=== PATIENT | female | born 1930 | race Caucasian/White ===

== ENCOUNTER 2018-07-12 17:51 | Inpatient (IN) ==
[2018-07-12] MEDS ORDERED: [UNRECOGNIZED DRUG - REMARK] SQ SCH (18:15)
[2018-07-12] MEDS: Aspirin Enteric Coated 325 MG Tablet PO SCH (22:00)
[2018-07-12] MEDS: *HR* FentaNYL PATCH 25 MCG PATCH TD SCH (22:16)
[2018-07-13] MEDS: *HR* OxyCODONE/APAP 5/325 TABLET PO PRN ×2 (02:59→10:02)
[2018-07-13 06:30] LABS: Eosinophils % 0.4 %; Hematocrit 26.3 % (35.3-44.9); Hemoglobin 8.7 g/dL (11.5-15.4); Immature Granulocytes % 1.9 % (0-4); Lymphocytes # 0.6 K/mcL (0.6-4.6); Lymphocytes % 11.7 %; Mean Corpuscular HGB Conc 33.1 g/dL (31.6-35.5); Mean Corpuscular Hemoglobin 28.8 pg (28.0-33.3); Mean Corpuscular Volume 87.1 fL (83.0-100.0); Mean Platelet Volume 11.7 fL (9.4-12.4); Monocytes # 0.9 K/mcL (0.0-1.3); Monocytes % 18.8 %; Neutrophils # 3.2 K/mcL (1.6-8.9); Platelet Count 120 K/mcL (140-400); Red Blood Count 3.02 M/mcL (3.82-4.97); Red Cell Distribution Width 15.7 % (11.5-14.5); Segmented Neutrophils % 67.2 %
[2018-07-13 07:01] LABS: Platelet Estimate Decreased (Normal)
[2018-07-13] MEDS: amLODIPine 5 MG TABLET PO SCH (08:05)
[2018-07-13] MEDS: Levothyroxine 25 MCG TABLET PO SCH (08:05)
[2018-07-13] MEDS: Aspirin Enteric Coated 325 MG Tablet PO SCH (10:07)
--- NOTE | 2018-07-13 12:47 | Internal Med History&Physical ---
Date of Encounter: 07/13/18 Time of Encounter: 12:15 Assessment and Plan (1) Status post total hip replacement, right Current visit: No Status: Acute PT and OT evaluations have been ordered. Lovenox will be used for DVT prophylaxis. (2) Acute blood loss anemia Current visit: No Status: Acute Lovenox will be used for DVT prophylaxis. CBC will be monitored. (3) Hypertension Current visit: Yes Status: Chronic Continue amlodipine and monitor blood pressure. Qualifiers: Hypertension type: essential hypertension Qualified Code(s): I10 - Essential (primary) hypertension (4) Microscopic hematuria Current visit: Yes Status: Acute Recheck UA (5) Hypothyroidism Current visit: Yes Status: Chronic Check TSH in a.m. Qualifiers: Hypothyroidism type: unspecified Qualified Code(s): E03.9 - Hypothyroidism, unspecified Internal Medicine - H&P: HPI Chief complaint: Right total hip replacement Admitted From: Hospital to Hospital Transfer Plans for Post Hospital Care: Home History of present illness: Ms. Jacobs is a 88 year old female who underwent elective right total hip replacement at [facility] 07/09/[address] Rucker. Her postop course was unremarkable except for receiving 1 unit packed red blood cells transfusion for anemia prior to discharge. She was discharged to [facility] swing bed for rehabilitation therapy prior to returning to independent living. Orthopedic history is significant for left total knee replacement 2004. She has DJD and scoliosis. She denies gout or other bone joint or muscle disorders. 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-epidural inclusion cyst, right neck skin cancer removal - Social History Smoking Status: Never smoker Smokeless Tobacco Status: No Alcohol use: none Drug use: none Internal Medicine - H&P: Meds Levothyroxine [Synthroid] 25 mcg PO QAM 02/07/18 [History] amLODIPine [Norvasc] 5 mg PO DAILY 02/07/18 [History] Syringe W-Needle,Disposab,1 ml [Allergy Syringe] 1 / SQ AD #1 pack 12/11/18 [Rx] Calcium Carbonate/Vitamin D3 [Calcium 600 + Vit D Tablet] 1 tab PO BID 07/09/18 [History] Cyanocobalamin (B-12) [Vitamin B12] 1,000 mcg IM QMONTH 07/09/18 [History] Rubbing Compound 1 appl TP AD PRN 07/09/18 [History] Aspirin Enteric Coated [Aspirin EC] 325 mg PO BID 10 Days #20 tablet. 07/11/18 [Rx] Fentanyl [Duragesic] 25 mcg TD Q72H 9 Days #3 patch.td72 07/11/18 [Rx] Oxycodone HCl/Acetaminophen [Percocet 5-325 mg Tablet] 1 each PO TID PRN 9 Days #18 tablet 07/11/18 [Rx] Allergy/AdvReac Type Severity Reaction Status Date / Time No Known Allergies Allergy Verified 07/09/18 14:02 All Systems PM: A 10-system review of systems was performed and is negative for pertinent findings except as documented above in the HPI. Review of systems: Gen.: She states her weight has decreased approximately 15 pounds in the past year, unintentionally Cardiovascular: She has history of hypertension but denies IA heart failure angina DVT or pulmonary embolus. She reports an EST approximately 15 years ago was unremarkable. Respiratory: She smoked from approximately age [age]. She denies chronic lung disease and does not use home oxygen GI: She denies disorders of her liver gallbladder or exocrine pancreas : She has had hematuria documented without workup done. She denies other disorders of her kidneys or bladder. Neurologic: She denies large distribution strokes or seizures. Endocrine: She has hypothyroidism. She denies hyperlipidemia or DM 2. Hematology/oncology: She denies internal malignancies. She had postoperative anemia with blood transfusion at [facility]. Psychiatric: She denies anxiety depression or other mental health diagnosis. [place] skeletal: As per history of present illness - Constitutional Vitals: Temp Pulse Resp BP Pulse Ox 98.1 F 79 13 131/74 97 07/13/18 06:24 07/13/18 06:24 07/13/18 06:24 07/13/18 06:24 07/13/18 06:24 Exam: Gen.: She is a well-developed lean female resting comfortably in bed who appears in no acute distress HEENT: Head is atraumatic and normocephalic. Eyes: EOMI. There is no scleral icterus. Mouth: Mucosa is moist. Neck: Supple and nontender. There is no thyromegaly or adenopathy noted. Heart: Regular with a 2/6 systolic murmur heard at the left sternal border without radiation to the base or axilla. S1 and S2 are preserved. Lungs: No wheezes or crackles are heard. Back: She has dorsal kyphosis. There is no presacral edema. Abdomen: Soft and nontender. No masses or guarding are noted. Extremities: There is no cyanosis edema or clubbing noted. Dorsalis pedis and posttibial pulses are trace palpable bilaterally. She has significant DJD changes of her hands. She has an abductor pillow in place. Surgical dressing is in place over the right hip surgical site. Neurologic: Mental status: She is talkative and a good historian. Cranial nerves: Smile is symmetric. Forehead wrinkles bilaterally. Tongue protrudes midline. EOMI. Motor: There is no pronator drift. Cerebellar: Finger to nose is intact bilaterally. Skin: Warm and dry Internal Med - H&P Results - Labs CBC & Chem 7: 07/13/18 05:49 Labs: Short CBC 07/13/18 Range/Units 05:49 WBC 4.8 (4.3-11.1) K/mcL Hgb 8.7 L D (11.5-15.4) g/dL Hct 26.3 L (35.3-44.9) % Plt Count 120 L (140-400) K/mcL Neutrophils # 3.2 (1.6-8.9) K/mcL
[2018-07-13] MEDS: *HR* Enoxaparin 40 MG/0.4 ML SYRINGE SQ SCH (16:47)
[2018-07-14 05:40] LABS: Thyroid Stimulating Hormone 1.095 mcIU/mL (0.340-5.600)
[2018-07-14 07:18] LABS: Basophils % 0.2 %; Hematocrit 28.2 % (35.3-44.9); Hemoglobin 9.1 g/dL (11.5-15.4); Immature Granulocytes % 1.9 % (0-4); Lymphocytes % 10.6 %; Mean Corpuscular HGB Conc 32.3 g/dL (31.6-35.5); Mean Corpuscular Hemoglobin 28.7 pg (28.0-33.3); Mean Platelet Volume 11.4 fL (9.4-12.4); Monocytes # 0.9 K/mcL (0.0-1.3); Monocytes % 21.3 %; Neutrophils # 2.7 K/mcL (1.6-8.9); Platelet Count 144 K/mcL (140-400); Red Blood Count 3.17 M/mcL (3.82-4.97); Red Cell Distribution Width 15.4 % (11.5-14.5)
[2018-07-14 07:20] LABS: Lymphocytes # 0.5 K/mcL (0.6-4.6)
[2018-07-14] MEDS: Levothyroxine 25 MCG TABLET PO SCH (07:23)
[2018-07-14] MEDS: *HR* Enoxaparin 40 MG/0.4 ML SYRINGE SQ SCH (07:23)
[2018-07-14 07:24] LABS: Platelet Estimate Normal (Normal)
[2018-07-14] MEDS: amLODIPine 5 MG TABLET PO SCH (08:34)
[2018-07-14] MEDS: MOM Conc 10 ML UD.LIQ PO SCH (08:34)
[2018-07-14 09:27] LABS: Bilirubin,Urine Negative (Negative); Blood,Urine Trace-lysed (Negative); Clarity,Urine Clear (Clear); Color,Urine Yellow (Yellow); Glucose,Urine (UA) Normal (Normal); Ketones,Urine Negative (Negative); Leukocyte Esterase,Urine Negative (Negative); Nitrite,Urine Negative (Negative); Protein,Urine Trace mg/dL (Neg-Trace); Urobilinogen,Urine Normal (Normal)
[2018-07-14 09:40] LABS: Amorphous Sediment,Urine Moderate (Few); Bacteria,Urine Many per hpf (None-Few); Squamous Epithelial Cell,Urine Many per lpf (None-Few)
[2018-07-14 10:02] LABS: Folate 13.8 ng/mL (3.0-16.0)
[2018-07-14] MEDS: *HR* OxyCODONE/APAP 5/325 TABLET PO PRN ×2 (14:03→22:36)
[2018-07-14] MEDS: [UNRECOGNIZED DRUG - OTHER] TP PRN (14:07)
--- NOTE | 2018-07-14 19:39 | Internal Med Progress Note ---
Date of Encounter: 07/14/18 Time of Encounter: 19:30 - Assessment and plan (1) Status post total hip replacement, right Current Visit: No Status: Acute Assessment and plan: July 14. Continue PT and OT intervention with Lovenox. Schedule Tylenol every 6 hours for pain (2) Acute blood loss anemia Current Visit: No Status: Acute Assessment and plan: July 14. Hemoglobin has risen slightly to 9.1. Anemia testing shows iron 18, transferrin saturation 8%, transferrin 167, ferritin 108, B12 363, and folate 13.8. Start ferrous sulfate with ascorbic acid in a.m. Continue to monitor. (3) Hypertension Current Visit: Yes Status: Chronic Assessment and plan: July 14. Continue amlodipine and monitor blood pressure. Qualifiers: Hypertension type: essential hypertension Qualified Code(s): I10 - Essential (primary) hypertension (4) Microscopic hematuria Current Visit: Yes Status: Acute Assessment and plan: July 14. Unchanged. Continue to monitor. (5) Hypothyroidism Current Visit: Yes Status: Chronic Assessment and plan: July 14. TSH normal at 1.095. Continue present dose Synthroid Qualifiers: Hypothyroidism type: unspecified Qualified Code(s): E03.9 - Hypothyroidism, unspecified - Subjective Interval history: July 14. She has "twinges" of pain but no other new complaints. - Constitutional Vitals: Temp Pulse Resp BP Pulse Ox 97.8 F 85 17 110/63 97 07/14/18 18:51 07/14/18 18:51 07/14/18 07:36 07/14/18 18:51 07/14/18 18:51 Exam: She is resting comfortably in bed and appears in no acute distress. Her affect is bright and cheerful. I reviewed her medications and lab results. Internal Medicine: Result - Labs CBC & Chem 7: 07/14/18 04:20 Labs: Short CBC 07/14/18 Range/Units 04:20 WBC 4.2 L (4.3-11.1) K/mcL Hgb 9.1 L (11.5-15.4) g/dL Hct 28.2 L (35.3-44.9) % Plt Count 144 (140-400) K/mcL Neutrophils # 2.7 (1.6-8.9) K/mcL Urine 07/14/18 Range/Units 09:17 Urine Color Yellow (Yellow) Urine Clarity Clear (Clear) Urine pH 8.0 (5.0-8.0) pH Units Ur Specific [place] 1.020 (1.010-1.025) Urine Protein Trace (Neg-Trace) mg/dL Urine Glucose (UA) Normal (Normal) mg/dL Consult Discharge Plan - Plan Referrals: Cait Amato, RUDY [Primary Care Provider] - 1 week
[2018-07-14] MEDS: Acetaminophen 325 MG TABLET PO SCH (20:33)
[2018-07-15] MEDS: Acetaminophen 325 MG TABLET PO SCH ×5 (00:15→23:58)
[2018-07-15] MEDS: [UNRECOGNIZED DRUG - OTHER] TP PRN ×2 (00:16→22:28)
[2018-07-15] MEDS: *HR* Enoxaparin 40 MG/0.4 ML SYRINGE SQ SCH (06:53)
[2018-07-15] MEDS: Levothyroxine 25 MCG TABLET PO SCH (06:53)
[2018-07-15] MEDS: Ascorbic Acid 500 MG TABLET PO SCH (06:53)
[2018-07-15] MEDS: amLODIPine 5 MG TABLET PO SCH (08:41)
[2018-07-15] MEDS: *HR* OxyCODONE/APAP 5/325 TABLET PO PRN (17:28)
[2018-07-15] MEDS: *HR* FentaNYL PATCH 25 MCG PATCH TD SCH (22:27)
[2018-07-16] MEDS: *HR* OxyCODONE/APAP 5/325 TABLET PO PRN ×2 (01:00→16:37)
[2018-07-16] MEDS: *HR* Enoxaparin 40 MG/0.4 ML SYRINGE SQ SCH (06:17)
[2018-07-16] MEDS: Levothyroxine 25 MCG TABLET PO SCH (06:17)
[2018-07-16] MEDS: Acetaminophen 325 MG TABLET PO SCH ×3 (06:17→17:17)
[2018-07-16] MEDS: Ascorbic Acid 500 MG TABLET PO SCH (06:17)
[2018-07-16] MEDS: MOM Conc 10 ML UD.LIQ PO SCH (07:33)
[2018-07-16] MEDS: amLODIPine 5 MG TABLET PO SCH (08:38)
[2018-07-16] MEDS: [UNRECOGNIZED DRUG - OTHER] TP PRN (08:39)
[2018-07-17] MEDS: Acetaminophen 325 MG TABLET PO SCH ×5 (01:00→23:31)
[2018-07-17] MEDS: Ascorbic Acid 500 MG TABLET PO SCH (05:21)
[2018-07-17] MEDS: Levothyroxine 25 MCG TABLET PO SCH (05:21)
[2018-07-17] MEDS: *HR* OxyCODONE/APAP 5/325 TABLET PO PRN ×3 (05:21→23:31)
[2018-07-17] MEDS: *HR* Enoxaparin 40 MG/0.4 ML SYRINGE SQ SCH (05:21)
[2018-07-17] MEDS: amLODIPine 5 MG TABLET PO SCH (09:18)
[2018-07-17] MEDS: [UNRECOGNIZED DRUG - OTHER] TP PRN (16:03)
--- NOTE | 2018-07-17 17:55 | Internal Med Progress Note ---
Date of Encounter: 07/17/18 Time of Encounter: 17:45 - Assessment and plan (1) Status post total hip replacement, right Current Visit: No Status: Acute Assessment and plan: July 14. Continue PT and OT intervention with Lovenox. Schedule Tylenol every 6 hours for pain (2) Acute blood loss anemia Current Visit: No Status: Acute Assessment and plan: July 14. Hemoglobin has risen slightly to 9.1. Anemia testing shows iron 18, transferrin saturation 8%, transferrin 167, ferritin 108, B12 363, and folate 13.8. Start ferrous sulfate with ascorbic acid in a.m. Continue to monitor. July 17. Recheck labs in a.m. (3) Hypertension Current Visit: Yes Status: Chronic Assessment and plan: July 14. Continue amlodipine and monitor blood pressure. Qualifiers: Hypertension type: essential hypertension Qualified Code(s): I10 - Essential (primary) hypertension (4) Microscopic hematuria Current Visit: Yes Status: Acute Assessment and plan: July 14. Unchanged. Continue to monitor. (5) Hypothyroidism Current Visit: Yes Status: Chronic Assessment and plan: July 14. TSH normal at 1.095. Continue present dose Synthroid Qualifiers: Hypothyroidism type: unspecified Qualified Code(s): E03.9 - Hypothyroidism, unspecified - Subjective Interval history: July 14. She has "twinges" of pain but no other new complaints. July 17. She has no complaints. - Constitutional Vitals: Temp Pulse Resp BP Pulse Ox 98.2 F 101 16 115/61 93 07/17/18 07:03 07/17/18 09:16 07/17/18 07:03 07/17/18 09:16 07/17/18 09:16 Exam: She is resting comfortably in bed and appears in no acute distress. Her affect is very bright and cheerful. She is very talkative. I reviewed her medications and lab results. Internal Medicine: Result - Labs CBC & Chem 7: 07/14/18 04:20 Consult Discharge Plan - Plan Referrals: Cait Amato, BERRY PICKER [Primary Care Provider] - 1 week
[2018-07-17] MEDS ORDERED: *HR* FentaNYL PATCH 12 MCG PATCH TD SCH (18:00)
[2018-07-18 05:25] LABS: Hematocrit 28.8 % (35.3-44.9); Mean Corpuscular HGB Conc 31.3 g/dL (31.6-35.5); Mean Corpuscular Hemoglobin 28.2 pg (28.0-33.3); Mean Corpuscular Volume 90.3 fL (83.0-100.0); Mean Platelet Volume 10.7 fL (9.4-12.4); Platelet Count 188 K/mcL (140-400); Red Blood Count 3.19 M/mcL (3.82-4.97); Red Cell Distribution Width 15.2 % (11.5-14.5); Segmented Neutrophils % 58.6 %
[2018-07-18 05:26] LABS: Basophils % 0.2 %; Eosinophils # 0.1 K/mcL (0.0-0.6); Eosinophils % 1.2 %; Immature Granulocytes % 2.4 % (0-4); Lymphocytes # 0.7 K/mcL (0.6-4.6); Lymphocytes % 15.7 %; Monocytes # 0.9 K/mcL (0.0-1.3); Monocytes % 21.9 %
[2018-07-18 05:42] LABS: Alanine Aminotransferase 10 Units/L (7-52); Albumin 3.2 g/dL (3.5-5.7); Albumin/Globulin Ratio 1.5 (1.1-2.2); Alkaline Phosphatase 48 Units/L (34-104); Aspartate Amino Transferase 18 Units/L (13-39); BUN/Creatinine Ratio 32 (6-26); Bilirubin,Total 0.4 mg/dL (0.3-1.0); Blood Urea Nitrogen 20 mg/dL (8-23); Calcium 8.8 mg/dL (8.6-10.3); Carbon Dioxide 31 mEq/L (23-29); Chloride 104 mEq/L (98-107); Globulin 2.2 g/dL (2.4-3.5); Glucose 100 mg/dL (70-105); Osmolality,Calculated 293 (280-300); Potassium 4.3 mEq/L (3.5-5.1); Sodium 140 mEq/L (136-145); Total Protein 5.4 g/dL (6.4-8.9); eGFR For Non-African Americans > 60 (> 60)
[2018-07-18 05:46] LABS: Neutrophils # 2.5 K/mcL (1.6-8.9)
[2018-07-18] MEDS: *HR* Enoxaparin 40 MG/0.4 ML SYRINGE SQ SCH (06:16)
[2018-07-18] MEDS: Acetaminophen 325 MG TABLET PO SCH ×3 (06:16→17:09)
[2018-07-18] MEDS: Ascorbic Acid 500 MG TABLET PO SCH (06:16)
[2018-07-18] MEDS: Levothyroxine 25 MCG TABLET PO SCH (06:16)
[2018-07-18 06:26] LABS: Platelet Estimate Normal (Normal)
[2018-07-18] MEDS: MOM Conc 10 ML UD.LIQ PO SCH (09:06)
[2018-07-18] MEDS: amLODIPine 5 MG TABLET PO SCH (09:06)
[2018-07-18] MEDS: [UNRECOGNIZED DRUG - OTHER] TP PRN (09:07)
[2018-07-18] MEDS: *HR* OxyCODONE/APAP 5/325 TABLET PO PRN (18:59)
[2018-07-19] MEDS: Acetaminophen 325 MG TABLET PO SCH ×4 (00:53→17:30)
[2018-07-19] MEDS: *HR* OxyCODONE/APAP 5/325 TABLET PO PRN ×2 (01:38→20:38)
[2018-07-19] MEDS: Ascorbic Acid 500 MG TABLET PO SCH (05:18)
[2018-07-19] MEDS: *HR* Enoxaparin 40 MG/0.4 ML SYRINGE SQ SCH (05:19)
[2018-07-19] MEDS: Levothyroxine 25 MCG TABLET PO SCH (05:19)
[2018-07-19] MEDS: amLODIPine 5 MG TABLET PO SCH (07:32)
[2018-07-19] MEDS: [UNRECOGNIZED DRUG - OTHER] TP PRN (17:35)
[2018-07-20] MEDS: Acetaminophen 325 MG TABLET PO SCH ×3 (00:29→09:09)
[2018-07-20] MEDS: Ascorbic Acid 500 MG TABLET PO SCH (06:41)
[2018-07-20] MEDS: Levothyroxine 25 MCG TABLET PO SCH (06:41)
[2018-07-20] MEDS: *HR* OxyCODONE/APAP 5/325 TABLET PO PRN ×2 (06:42→13:56)
[2018-07-20] MEDS: *HR* Enoxaparin 40 MG/0.4 ML SYRINGE SQ SCH (06:43)
[2018-07-20 06:52] VITALS: BP 158/74
[2018-07-20] MEDS: amLODIPine 5 MG TABLET PO SCH (09:09)
[2018-07-20] MEDS: MOM Conc 10 ML UD.LIQ PO SCH (09:10)
--- NOTE | 2018-07-20 15:35 | Discharge Summary ---
Date of Encounter: 07/20/18 Time of Encounter: 15:25 - Discharge Diagnosis (1) Status post total hip replacement, right Priority: Primary Status: Acute (2) Acute blood loss anemia Priority: Secondary Status: Acute (3) Hypertension Priority: Secondary Status: Chronic Qualifiers: Hypertension type: essential hypertension Qualified Code(s): I10 - Essential (primary) hypertension (4) Microscopic hematuria Priority: Secondary Status: Acute (5) Hypothyroidism Priority: Secondary Status: Chronic Qualifiers: Hypothyroidism type: unspecified Qualified Code(s): E03.9 - Hypothyroidism, unspecified Hospital course: Ms. Jacobs is a 88 year old female who underwent elective right total hip replacement at [facility] 07/09/[address] Rucker. Her postop course was unremarkable except for receiving 1 unit packed red blood cells transfusion for anemia prior to discharge. She was discharged to [facility] swing bed for rehabilitation therapy prior to returning to independent living. Initial orders were written by the emergency room physician. I saw her on July 13 and performed the history and physical. She had physical therapy and occupational therapy with ongoing interventions. She progressed satisfactorily and on July 20 she felt stable for discharge home. She will follow with her PCP within 1 week and with the orthopedist as directed. Anemia testing showed iron 18, transferrin saturation 8%, transferrin 167, ferritin 108, B12 363, and folate 13.8. She was prescribed ferrous sulfate with ascorbic acid and these were continued at discharge. - Time Spent with Patient Total time spent providing and/or coordinating discharge services: - Discharge Medications Prescriptions: New Ferrous Sulfate 325 mg PO DAILY@0630 #30 tablet OxyCODONE/APAP 5/325 [Percocet 5/325 MG] 1 each PO Q6H PRN 5 Days #20 tablet PRN Reason: Breakthrough Pain Ascorbic Acid [Vitamin C] 500 mg PO DAILY@0630 #30 tablet Continued Levothyroxine [Synthroid] 25 mcg PO QAM amLODIPine [Norvasc] 5 mg PO DAILY Syringe W-Needle,Disposab,1 ml [Allergy Syringe] 1 / SQ AD #1 pack Calcium Carbonate/Vitamin D3 [Calcium 600 + Vit D Tablet] 1 tab PO BID Cyanocobalamin (B-12) [Vitamin B12] 1,000 mcg IM QMONTH Rubbing Compound 1 appl TP AD PRN PRN Reason: BACK PAIN Discontinued Aspirin Enteric Coated [Aspirin EC] 325 mg PO BID 10 Days #20 tablet. Home Medications: Levothyroxine [Synthroid] 25 mcg PO QAM 02/07/18 [History] amLODIPine [Norvasc] 5 mg PO DAILY 02/07/18 [History] Syringe W-Needle,Disposab,1 ml [Allergy Syringe] 1 / SQ AD #1 pack 02/27/18 [Rx] Calcium Carbonate/Vitamin D3 [Calcium 600 + Vit D Tablet] 1 tab PO BID 07/09/18 [History] Cyanocobalamin (B-12) [Vitamin B12] 1,000 mcg IM QMONTH 07/09/18 [History] Rubbing Compound 1 appl TP AD PRN 07/09/18 [History] Ascorbic Acid [Vitamin C] 500 mg PO DAILY@0630 #30 tablet 07/20/18 [Rx] Ferrous Sulfate 325 mg PO DAILY@0630 #30 tablet 07/20/18 [Rx] OxyCODONE/APAP 5/325 [Percocet 5/325 MG] 1 each PO Q6H PRN 5 Days #20 tablet 07/20/18 [Rx] Allergies/Adverse Reactions: Allergy/AdvReac Type Severity Reaction Status Date / Time No Known Allergies Allergy Verified 07/09/18 14:02 Date of admission: 07/12/18 18:01 Primary care physician: Cait Amato CNP Consults: 07/12/18 18:17 Consult to Occupational Therapy [CONS] Routine Comment: evaluate, develop, and implement plan of care Reason for Consult: evaluate, develop, and implement plan of care Does patient have active BEDREST order?: No Is patient medically & hemodynamically stable?: Yes Patient assessed for mobility or mobilized this visit?: No Consult to Physical Therapy [CONS] Routine Comment: evaluate, develop, and implement plan of care Reason for Consult: evaluate, develop, and implement plan of care Does patient have active BEDREST order?: No Is patient medically & hemodynamically stable?: Yes Patient assessed for mobility or mobilized this visit?: No Consult to Sub Master [CONS] Routine Reason for SW Consult: discharge planning - Constitutional Vitals: Temp Pulse Resp BP Pulse Ox 97.6 F 85 16 158/74 98 07/20/18 06:51 07/20/18 06:51 07/20/18 06:51 07/20/18 06:51 07/20/18 06:51 - Patient Status Disposition: Home, Self-Care - Discharge Instructions Follow Up With: Cait Amato CNP [Primary Care Provider] - 1 week - Diet and Activity Activity: as per physical therapy Diet: advance to your usual diet
--- NOTE | 2018-07-20 15:41 | Physician Discharge Referral ---
Home Health/Hosp Referral Info Transfer to: Home Health Attending Provider: Giovanni Provider in Charge Post Discharge: PCP (Cait Amato CNP) - Diagnosis (1) Status post total hip replacement, right Priority: Primary Status: Acute (2) Acute blood loss anemia Priority: Secondary Status: Acute (3) Hypertension Priority: Secondary Status: Chronic (4) Microscopic hematuria Priority: Secondary Status: Acute (5) Hypothyroidism Priority: Secondary Status: Chronic - Respiratory Orders Smoking Cessation: Smoking cessation has been advised. For more information, call the [place] Tobacco Quit Line at 4-915-EAOS-NOW. - Diet/Nutrition Diet/Nutrition Orders: Regular - Activity Activity Orders: Walker - Services Needed Following services are medically necessary services: Nursing, Home Health Aide, Physical Therapy, Occupational Therapy - Transfer Medications Prescriptions: Ferrous Sulfate 325 mg PO DAILY@0630 #30 tablet OxyCODONE/APAP 5/325 [Percocet 5/325 MG] 1 each PO Q6H PRN 5 Days #20 tablet PRN Reason: Breakthrough Pain Ascorbic Acid [Vitamin C] 500 mg PO DAILY@0630 #30 tablet Home Medications: Levothyroxine [Synthroid] 25 mcg PO QAM 02/07/18 [History] amLODIPine [Norvasc] 5 mg PO DAILY 02/07/18 [History] Syringe W-Needle,Disposab,1 ml [Allergy Syringe] 1 / SQ AD #1 pack 02/27/18 [Rx] Calcium Carbonate/Vitamin D3 [Calcium 600 + Vit D Tablet] 1 tab PO BID 07/09/18 [History] Cyanocobalamin (B-12) [Vitamin B12] 1,000 mcg IM QMONTH 07/09/18 [History] Rubbing Compound 1 appl TP AD PRN 07/09/18 [History] Ascorbic Acid [Vitamin C] 500 mg PO DAILY@0630 #30 tablet 07/20/18 [Rx] Ferrous Sulfate 325 mg PO DAILY@0630 #30 tablet 07/20/18 [Rx] OxyCODONE/APAP 5/325 [Percocet 5/325 MG] 1 each PO Q6H PRN 5 Days #20 tablet 07/20/18 [Rx] Allergies/Adverse Reactions: Allergy/AdvReac Type Severity Reaction Status Date / Time No Known Allergies Allergy Verified 07/09/18 14:02 Certification: Further, I certify that my clinical findings support that this patient is homebound (i.e. absences from home require considerable and taxing effort and are for medical reasons or [employer] services or infrequently or short duration when for other reasons) because: Homebound Reason: Leaving home requires considerable and taxing effort due to condition (Total hip replacement, impaired walking ability) Attestation: My signature below is to certify that this patient is under my care and that I, or nurse practitioner, or a physician's operator/assistant foreman working with me, has a [id number] encounter with this patient.
[2018-07-25] MEDS ORDERED: Cyanocobalamin (B-12) 1,000 MCG/ML VIAL IM SCH (09:00)
== END 2018-07-20 17:43 | disposition home or self-care (01) | DRG 560 ==
LOC: INPPIK 18:01
PROVIDERS: ADMIT Internal Medicine; ATTEND Internal Medicine